=== PATIENT | female | born 1980 | race Caucasian/White ===

== ENCOUNTER 2023-06-18 08:42 | Inpatient (IN) | payer OTHER ==
[2023-06-18] MEDS ORDERED: LIGASURE IMPACT TP ONE (09:14)
[2023-06-18 09:37] VITALS: BMI 37.8
[2023-06-18] MEDS ORDERED: ONDANSETRON 4 MG/2 ML VIAL IVPUSH PRN (09:52)
[2023-06-18] MEDS ORDERED: ACETAMINOPHEN 325 MG TABLET (FP) PO PRN (09:52)
[2023-06-18] MEDS ORDERED: morphine SULFATE/PF 1 MG/2 ML (2cc Syringe - QUVA) ONE (09:57)
[2023-06-18] MEDS ORDERED: PHENYLEPHRINE HCL 10 MG/1 ML SINGLE DOSE VIAL ONE (09:58)
[2023-06-18] MEDS ORDERED: CITRIC ACID/SODIUM CITRATE 30 ML UNIT-DOSE CUP PO ONE (10:03)
[2023-06-18] MEDS ORDERED: ELECTROLYTE-148 SOLN 500 ML IV ONE (10:03)
[2023-06-18] MEDS ORDERED: ELECTROLYTE-148 SOLN 1,000 ML IV SCH (10:15)
[2023-06-18] MEDS ORDERED: ceFAZolin SODIUM 1 GM VIAL ONE ×2 (11:00)
[2023-06-18] MEDS ORDERED: EPINEPHrine/PF 1 MG/1 ML (1:1,000) AMPULE ONE (11:00)
[2023-06-18] MEDS ORDERED: OXYTOCIN 10 UNITS/ML VIAL ONE ×2 (11:00)
[2023-06-18] MEDS ORDERED: WITCH HAZEL 50% (TUCKS) 40 PAD/JAR PAD TP PRN (11:17)
[2023-06-18] MEDS ORDERED: BENZOCAINE 20% 57 GM BOTTLE TP PRN (11:17)
[2023-06-18] MEDS ORDERED: BENZOCAINE 28 GM HEMORRHOIDAL OINTMENT TP PRN (11:17)
[2023-06-18] MEDS ORDERED: BISACODYL 10 MG SUPP.RECT RC PRN (11:17)
[2023-06-18] MEDS ORDERED: OXYTOCIN 20 UNITS in 0.9% NS 20 UNIT/1,000 ML INFUS.BAG IV SCH (11:30)
[2023-06-18] MEDS ORDERED: IBUPROFEN 800 MG/8 ML IJ IVPB ONE (13:19)
[2023-06-18] MEDS ORDERED: OXYTOCIN 20 UNITS in 0.9% NS 20 UNIT/1,000 ML INFUS.BAG IV ONE (13:22)
[2023-06-18] MEDS: IBUPROFEN 800 MG/8 ML IJ IVPB PRN ×2 (13:35→21:30)
[2023-06-19] MEDS: oxyCODONE HCL 5 MG TABLET PO PRN ×3 (04:45→21:13)
[2023-06-19 08:32] LABS: BASO % 0.4 % (0-2.0); EOS % 0.5 % (0-4.5); HEMATOCRIT 31.3 % (32.4-45.2); HEMOGLOBIN 10.7 GM/dL (10.7-15.3); LYMPH % 7.9 % (8-40); MCH 30.5 pg (25.7-33.7); MCHC 34.4 g/dl (32.0-36.0); MEAN CELL VOLUME 88.7 fl (80-96); MEAN PLT VOLUME 7.7 fl (7.5-11.1); MONO % 4.4 % (3.8-10.2); NEUT % 86.8 % (42.8-82.8); PLATELET COUNT 175 10^3/uL (134-434); RBC 3.52 M/mm3 (3.60-5.2); RDW 14.8 % (11.6-15.6); WHITE BLOOD COUNT 13.5 K/mm3 (4.0-10.0)
[2023-06-19] MEDS: IBUPROFEN 600 MG TABLET (FP) PO PRN ×2 (08:35→16:02)
[2023-06-19] MEDS: ACETAMINOPHEN 325 MG TABLET (FP) PO PRN (18:15)
[2023-06-20] MEDS: IBUPROFEN 600 MG TABLET (FP) PO PRN ×3 (01:48→20:30)
[2023-06-20] MEDS: oxyCODONE HCL 5 MG TABLET PO PRN ×3 (06:10→19:25)
[2023-06-20] MEDS: ACETAMINOPHEN 325 MG TABLET (FP) PO PRN (10:41)
[2023-06-21] MEDS: oxyCODONE HCL 5 MG TABLET PO PRN (03:47)
[2023-06-21] MEDS: IBUPROFEN 600 MG TABLET (FP) PO PRN ×2 (06:30→10:53)
[2023-06-21 11:11] VITALS: BP 145/84; PULSE 71; RESP 17; TEMP 98.1
== END 2023-06-21 12:25 | disposition home or self-care (01) | DRG 540 ==
LOC: JLDR 08:42 → J3W 13:40
PROVIDERS: ADMIT Student in an Organized Health Care Education/Training Program; ATTEND Student in an Organized Health Care Education/Training Program
PROC: 10D00Z1 Extraction of Products of Conception, Low, Open Approach (ICD-10-PCS; principal; 2023-06-18)
PROC: 0UB70ZZ Excision of Bilateral Fallopian Tubes, Open Approach (ICD-10-PCS; 2023-06-18)
DX: O30.033 Twin pregnancy, monochorionic/diamniotic, third trimester (principal); O34.219 Maternal care for unspecified type scar from previous cesarean delivery; Z3A.37 37 weeks gestation of pregnancy; Z37.2 Twins, both liveborn; Z30.2 Encounter for sterilization
CPT/HCPCS: 36415; 80053; 81003; 85025; 86780; 86850; 86900; 86901; 88302-TC; 88305-TC; 88307-TC